=== PATIENT | female | born 1945 | race Caucasian/White ===

== ENCOUNTER 2017-01-09 04:46 | Emergency (ER) | payer BC ==
[~2017-01-09] VITALS: Ht 165.1 cm; Wt 82.9 kg
[2017-01-09 04:49] VITALS: TEMP 36.8; Ht 165.1 cm; Wt 82.9 kg
[2017-01-09] MEDS ORDERED: MoRPHine SULFATE 4 MG/ML 1 ML CARP\\VIAL IV STA (05:01)
[2017-01-09] MEDS ORDERED: KETOROLAC TROMETHAMINE 30 MG/ML VIAL IV STA (05:01)
[2017-01-09] MEDS ORDERED: DIAZEPAM INJ 5 MG/ML 2 ML CARP IV STA (05:01)
[2017-01-09] MEDS ORDERED: SODIUM CHLORIDE 0.9% 1000ML 1,000 ML IV STA (05:01)
--- NOTE | 2017-01-09 05:01 | EMERGENCY ROOM VISIT NOTE ---
History Report prepared by Ekta: Millie Butterfield Under the Supervision of: Dr. Tre Simon M.D. First contact with patient: 04:55 Chief Complaint: NECK PAIN Stated Complaint: NECK/HEAD PAIN History of Present Illness The patient is a 71 year old female who presents to the Emergency Room with complaints of neck pain beginning yesterday. She rates the pain at a 6/10. She reports that the pain goes from her shoulders to the back of her head, and that she was unable to sleep due to the pain. The patient denies fevers, abdominal pain, a sore throat, and changes in vision. Notes left lateral hand had some "numbness" though can feel well which has been ongoing much longer than neck issue. She has taken no medication this evening for neck pain. She has not had this previously. Denies trauma nor injuries. No neuro deficits. Movement makes worse, rest makes better. Tried cold packs without improvement. Source of History: patient Onset: yesterday Position: neck Symptom Intensity: rated at a 6/10 Quality: other (neck pain) Associated Symptoms: No fevers, No sorethroat, No abdominal pain Note: additional symptom: numbness in left hand Review of Systems See HPI for pertinent positives & negatives. A total of 6 systems reviewed and were otherwise negative. Past Medical & Surgical Medical Problems: (1) Hypotension Family History FHx: cancer FHx: gallbladder disease FHx: heart disease Hypertension Social History Smoking Status: Never Smoker Alcohol Use: none Marital Status: Current/Historical Medications Scheduled PRN Cyclobenzaprine Hcl (Flexeril), 10 MG PO TID PRN for Muscle Spasms Oxycodone Immediate Rel Tab (Roxicodone Ir), 1-2 TAB PO Q4H PRN for Severe Pain Allergies Coded Allergies: No Known Allergies (Unverified , 01/03/13) Physical Exam Vital Signs Date Time Temp Pulse Resp B/P (MAP) Pulse Ox O2 Delivery O2 Flow Rate FiO2 01/09/17 06:27 50 18 140/72 95 Room Air 01/09/17 04:49 36.8 75 18 152/73 93 Room Air Physical Exam GENERAL: Patient is uncomfortable appearing and in mild distress. HEENT: No acute trauma, normocephalic atraumatic, mucous membranes moist, no nasal congestion, no scleral icterus. NECK: No stridor, no adenopathy, no meningismus, trachea is midline. Paraspinal muscle spasms bilaterally with straightening of cervical spine. LUNGS: No dyspnea. Clear to auscultation and equal bilaterally. No wheeze, no rhonchi. HEART: Regular rate and rhythm. No murmurs, rubs, gallops appreciated. EXTREMITIES: Normal motion all extremities, no cyanosis, no edema. NEUROLOGIC: Alert and oriented, no acute motor or sensory deficits, no focal weakness, cranial nerves grossly intact. SKIN: No rash, no jaundice, no diaphoresis. Medical Decision & Procedures ER Provider Diagnostic Interpretation: X ray results are stated below per my interpretation and the radiologist's interpretation. X ray 4 views cervical spine: Straightening of normal curvature, diffuse arthritic changes. No acute step offs nor fractures appreciated. Laboratory Results 01/09/17 05:09 Red Blood Count 4.84, Mean Corpuscular Volume 88.2, Mean Corpuscular Hemoglobin 30.0, Mean Corpuscular Hemoglobin Concent 34.0, Mean Platelet Volume 8.6, Neutrophils (%) (Auto) 45.0, Lymphocytes (%) (Auto) 37.9, Monocytes (%) (Auto) 12.6, Eosinophils (%) (Auto) 3.7, Basophils (%) (Auto) 0.6, Neutrophils # (Auto ) 3.65, Lymphocytes # (Auto) 3.08, Monocytes # (Auto) 1.02, Eosinophils # (Auto ) 0.30, Basophils # (Auto) 0.05 01/09/17 05:09 Test 01/09/17 05:09 White Blood Count 8.12 K/uL (4.8-10.8) Red Blood Count 4.84 M/uL (4.2-5.4) Hemoglobin 14.5 g/dL (12.0-16.0) Hematocrit 42.7 % (37-47) Mean Corpuscular Volume 88.2 fL (80-100) Mean Corpuscular Hemoglobin 30.0 pg (25-34) Mean Corpuscular Hemoglobin Concent 34.0 g/dl (32-36) Platelet Count 287 K/uL (130-400) Mean Platelet Volume 8.6 fL (7.4-10.4) Neutrophils (%) (Auto) 45.0 % Lymphocytes (%) (Auto) 37.9 % Monocytes (%) (Auto) 12.6 % Eosinophils (%) (Auto) 3.7 % Basophils (%) (Auto) 0.6 % Neutrophils # (Auto) 3.65 K/uL (1.4-6.5) Lymphocytes # (Auto) 3.08 K/uL (1.2-3.4) Monocytes # (Auto) 1.02 K/uL (0.11-0.59) Eosinophils # (Auto) 0.30 K/uL (0-0.5) Basophils # (Auto) 0.05 K/uL (0-0.2) RDW Standard Deviation 40.1 fL (36.4-46.3) RDW Coefficient of Variation 12.5 % (11.5-14.5) Immature Granulocyte % (Auto) 0.2 % Immature Granulocyte # (Auto) 0.02 K/uL (0.00-0.02) Anion Gap 10.0 mmol/L (3-11) Est Creatinine Clear Calc Drug Dose 70.6 ml/min Estimated GFR () 87.2 Estimated GFR (Non- 75.2 BUN/Creatinine Ratio 23.7 (10-20) Calcium Level 8.9 mg/dl (8.5-10.1) Laboratory results as reviewed by me. Medications Administered Medications (Trade) Dose Ordered Sig/Andrew Route Start Time Stop Time Status Last Admin Dose Admin Sodium Chloride 1,000 ml @ 999 mls/hr Q1H1M STAT IV 01/09/17 05:01 01/09/17 06:01 DC 01/09/17 05:34 999 MLS/HR Ketorolac Tromethamine (Toradol Inj) 30 mg NOW STAT IV 01/09/17 05:01 01/09/17 05:04 DC 01/09/17 05:33 30 MG Morphine Sulfate (MoRPHine SULFATE INJ) 4 mg NOW STAT IV 01/09/17 05:01 01/09/17 05:05 DC 01/09/17 05:33 4 MG Diazepam (Valium Inj) 2.5 mg NOW STAT IV 01/09/17 05:01 01/09/17 05:05 DC 01/09/17 05:33 2.5 MG Oxycodone HCl (Roxicodone Immediate Rel 5MG Home Pack) 1 homepack UD ONCE PO 01/09/17 06:15 6/18/17 06:16 DC 01/09/17 06:15 1 HOMEPACK Cyclobenzaprine HCl (FLEXERIL 10MG Home Pack) 1 homepack UD ONCE PO 01/09/17 06:15 01/09/17 06:16 DC 01/09/17 06:15 1 HOMEPACK ED Course 0456: The patient was evaluated in room B12. A complete history and physical exam was performed. 0501: Ordered Diazepam 2.5 mg IV, Morphine Sulfate 4 mg IV, Toradol Inj 30 mg IV , Sodium Chloride 1,000 ml @ 999 mls/hr IV. 0538: The patient notes that she is starting to feel better. 0615: Ordered Cyclobenzaprine HCl 1 homepack PO, Oxycodone HCl 1 homepack PO. 0620: The patient is feeling much better and she would like to see how she does at home. She will follow up with her PCP about her blood pressure and neck arthritis. Medical Decision Medication Reconciliation: I attest that I have personally reviewed the patient 's current medication list. Blood pressure screening: Patient was found to have an elevated blood pressure and was referred to their primary doctor for recheck and further treatment. 71 yr old female arrives for evaluation of bilateral neck pain radiating to low posterior scalp. Exam consistent with significant muscle spasm bilaterally and cervical imaging with straightening cervical spine. No acute fracture. She does not have meningitis by exam/history. She does not have cause nor findings of dissection. No evidence of cellulitis nor abscess. Labs unremarkable. Admits increased gardening and I suspect she did something to strain neck with that. Without neurologic deficits I do not feel neuro imaging indicated. She notes left lateral hand tingling for a long time that has been ongoing without change. I advised she discuss symptoms, BP elevation and ED visit with her PCP. We reviewed symptoms requiring return. She is feeling much improved and comfortable with discharge. Reviewed restrictions/risks of narcotics, along with flexeril. Stable and feeling well at discharge. Impression Primary Impression: Muscle spasms of neck Additional Impressions: Hypertension Cervical spine degeneration Scribe Attestation The scribe's documentation has been prepared under my direction and personally reviewed by me in its entirety. I confirm that the note above accurately reflects all work, treatment, procedures, and medical decision making performed by me. Departure Information Dispostion Home / Self-Care Prescriptions Cyclobenzaprine Hcl (FLEXERIL) 10 Mg Tab 10 MG PO TID Y for Muscle Spasms, #12 TAB Prov: Tre Simon M.D. 01/09/17 Oxycodone Immediate Rel Tab (ROXICODONE IR) 5 Mg Tab 1-2 TAB PO Q4H Y for Severe Pain, #12 TAB Prov: Tre Simon M.D. 01/09/17 Referrals Primary Care Provider Patient Instructions ED Spasm Neck No Injury, My [facility] Additional Instructions Your blood pressure was elevated during this visit. This is quite common in many people who are being evaluated in the Emergency Department for many reasons. However, it is important that you have your Primary Care Provider recheck your blood pressure and discuss whether treatment will be needed. ferry terminal agent elevated blood pressure can lead to strokes, heart attacks, kidney failure amongst other medical issues. If you develop severe headaches, chest pain, weakness in arms or legs, or other concerning symptoms call 911. You have received a narcotic pain medication prescription. These medications may cause drowsiness and should not be used with other sedative medications. Do not drive, drink alcohol, perform dangerous activities, nor make important decisions after taking these medications. USP use or inappropriate use may lead to addiction. Problem Qualifiers
[2017-01-09 05:18] LABS: BASO % 0.6 %; BASO ABS # 0.05 K/uL (0-0.2); COMPLETE YES; EOS % 3.7 %; HEMATOCRIT 42.7 % (37-47); IG% 0.2 %; LYMPH % 37.9 %; LYMPH ABS # 3.08 K/uL (1.2-3.4); MEAN CELL VOLUME 88.2 fL (80-100); MEAN PLATELET VOLUME 8.6 fL (7.4-10.4); MONO % 12.6 %; PLATELET COUNT 287 K/uL (130-400); RED BLOOD COUNT 4.84 M/uL (4.2-5.4); WHITE BLOOD COUNT 8.12 K/uL (4.8-10.8)
[2017-01-09 05:36] LABS: BUN/CREATININE RATIO 23.7 (10-20); CALCIUM 8.9 mg/dl (8.5-10.1); CREATININE 0.8 mg/dl (0.60-1.20); POTASSIUM 3.7 mmol/L (3.5-5.1)
[2017-01-09] MEDS ORDERED: CYCL10TA6 PO (06:13)
[2017-01-09] MEDS ORDERED: OXYC1TAB3 PO (06:13)
[2017-01-09] MEDS ORDERED: FLEXERIL HOME PACK 10 MG VIAL PO ONE (06:15)
[2017-01-09] MEDS ORDERED: OXYCODONE IR HOME PACK PO ONE (06:15)
[2017-01-09 06:27] VITALS: BP 140/72; PULSE 50; O2SAT 95
--- NOTE | 2017-01-09 08:33 | DIAGNOSTIC IMAGING REPORT ---
CERVICAL SPINE 3 VIEWS HISTORY: neck spasm/pain COMPARISON: None. FINDINGS: The cervical spine is visualized from C1 through the superior endplate of T1. There is no fracture. No subluxation. Mild facet degenerative changes throughout the majority of the cervical spine. There is mild disc space narrowing and small endplate osteophytes at C4-C5, C5-C6, and C6-C7. Prevertebral soft tissues and the atlantodens interval are intact. IMPRESSION: No fracture or subluxation within the cervical spine. Mild degenerative changes as described above. Electronically signed by: Misha Holman M.D. 01/09/2017 8:32 AM Dictated Date/Time: 01/09/2017 8:31 AM
== END 2017-01-09 06:30 | disposition home or self-care (01) ==
LOC: C.EDB 04:47
DX: M62.838 Other muscle spasm (principal); I10 Essential (primary) hypertension; Z80.9 Family history of malignant neoplasm, unspecified; Z82.49 Family history of ischemic heart disease and other diseases of the circulatory system; M47.9 Spondylosis, unspecified

== ENCOUNTER → 2017-02-10 | Outpatient (CLI) | payer BC ==
[~2017-02-10] MED LIST: OXYC1TAB3 PO
--- NOTE | 2017-02-11 12:18 | MAMMOGRAPHY REPORT ---
BILATERAL DIGITAL SCREENING MAMMOGRAM TOMOSYNTHESIS WITH CAD: 02/10/2017 CLINICAL HISTORY: Routine screening examination. TECHNIQUE: Breast tomosynthesis in addition to standard 2D mammography was performed. Current study was also evaluated with a Computer Aided Detection (CAD) system. COMPARISON: Comparison is made to exams dated: 02/09/2016 mammogram, 02/06/2015 mammogram, 02/05/2014 m ammogram, 01/31/2013 mammogram, 01/31/2012 mammogram, and 01/28/2011 mammogram - [facility]. BREAST COMPOSITION: There are scattered areas of fibroglandular density in both breasts. FINDINGS: An 8 mm mass in the upper outer quadrant of the right breast has been stable in size on all available prior mammograms dating back to at least 11/10/2007, therefore likely benign. There are a few benign-appearing micro-calcifications scattered bilaterally. No suspicious mass, architectural distortion or cluster of suspicious microcalcifications is seen. IMPRESSION: ACR BI-RADS CATEGORY 1: NEGATIVE There is no mammographic evidence of malignancy. A 1 year screening mammogram is recommended. The pa tient will receive written notification of the results. Approximately 10% of breast cancers are not detected with mammography. A negative mammographic report should not delay biopsy if a clinically suggestive mass is present. Dilcia Morris M.D. ay/:02/10/2017 16:34:44 Machined Parts Quality Inspector: Jessa WARD)(Marcela), [facility] letter sent: Normal 1/2 BI-RADS Code: ACR BI-RADS Category 1: Negative
== END | disposition home or self-care (01) ==
LOC: C.MAMM 08:01
PROVIDERS: ATTEND Physician Assistant
DX: Z12.31 Encounter for screening mammogram for malignant neoplasm of breast (principal)

== ENCOUNTER → 2017-09-27 | Outpatient (CLI) | payer BC | END | disposition home or self-care (01) | LOC: C.RDSM 09:09 | PROVIDERS: ATTEND Physical Medicine & Rehabilitation Sports Medicine | DX: G56.02 Carpal tunnel syndrome, left upper limb (principal) ==

== ENCOUNTER → 2018-02-13 | Outpatient (CLI) | payer BC ==
--- NOTE | 2018-02-14 07:31 | MAMMOGRAPHY REPORT ---
BILATERAL DIGITAL SCREENING MAMMOGRAM TOMOSYNTHESIS WITH CAD: 02/13/2018 CLINICAL HISTORY: Routine screening. Patient has no complaints. TECHNIQUE: The study was acquired using full field digital technology and interpreted from soft copy. Breast tomosynthesis in addition to standard 2D mammography was performed. Current study was also ev aluated with a Computer Aided Detection (CAD) system. COMPARISON: Comparison is made to exams dated: 02/10/2017 mammogram, 02/09/2016 mammogram, 02/06/2015 m ammogram, 02/05/2014 mammogram, 01/31/2013 mammogram, and 01/31/2012 mammogram - [facility]. BREAST COMPOSITION: There are scattered areas of fibroglandular density in both breasts. FINDINGS: A 9 mm mass in the right upper outer quadrant is stable mammographically dating back to at least 11/11/2008, therefore likely benign. No suspicious mass, architectural distortion or cluster of microcalcifications is seen. IMPRESSION: ACR BI-RADS CATEGORY 1: NEGATIVE There is no mammographic evidence of malignancy. A 1 year screening mammogram is recommended.( 019) The patient will receive written notification of the results. Some breast cancers are not detected with mammography. A negative mammographic report should not mine y biopsy if a clinically suggestive mass is present. Dilcia Morris M.D. ay/:02/13/2018 16:26:01 Hematology Technician: RT Yumiko(Jocelyn)(Marcela)(BD), [facility] letter sent: Normal 1/2 BI-RADS Code: ACR BI-RADS Category 1: Negative
== END | disposition home or self-care (01) ==
LOC: C.MAMM 10:07
PROVIDERS: ATTEND Physician Assistant
DX: Z12.31 Encounter for screening mammogram for malignant neoplasm of breast (principal)